=== PATIENT | female | born 1955 | race Caucasian/White ===

== ENCOUNTER 2021-05-02 17:18 | Outpatient (CLI) | payer OTHER, SELFPAY ==
--- NOTE | ~2021-05-02 | MM_ITS ---
EXAMINATION: MM screening [facility] HISTORY: Screening TECHNIQUE: Craniocaudal and mediolateral oblique 3-D tomosynthesis images were obtained and synthetic 2-D images were generated. CAD analysis was submitted and interpreted. COMPARISON: Comparison to multiple prior studies sequentially, with oldest reviewed study dated 12/2015. BREAST PARENCHYMAL COMPOSITION: There are scattered areas of fibroglandular density. FINDINGS: There is no evidence of suspicious mass, calcification, or architectural distortion to sugg est malignancy in either breast. There has been no suspicious interval change. IMPRESSION: 1. No mammographic evidence of malignancy. 2. Recommend routine screening mammography in one year. BI-RADS Category 1: Negative Reviewed, dictated and finalized at location A. ING INSTRUCTOR
== END 2021-05-02 17:19 | disposition home or self-care (01) ==
PROVIDERS: PCP Family Medicine; Visit Provider Obstetrics & Gynecology
DX: Z12.31 Encounter for screening mammogram for malignant neoplasm of breast (principal)
CPT/HCPCS: 77063; 77067

== ENCOUNTER 2021-08-26 13:02 | Outpatient (CLI) | payer OTHER, SELFPAY ==
--- NOTE | ~2021-08-26 | DEXA_ITS ---
Bone Density Report Name: LETICIA VÁSQUEZ Age: 66 Sex: Female Ethnicity: White Date of : 1955 Indication: osteopenia; height loss; hysterectomy; postmenopausal Referring Provider: Jennifer, Dorie Powell Study: Bone densitometry was performed. Exam Date: August 26, 2021 Accession number: [id number] Bone Density: Region BMD T-score Z-score Classification AP Spine (L1-L4) 0.786 -2.4 -0.5 Osteopenia Femoral Neck (Left) 0.590 -2.3 -0.7 Osteopenia Total Hip (Left) 0.638 -2.5 -1.2 Osteoporosis Total Hip Bilateral Avg 0.643 -2.5 -1.2 Osteoporosis Femoral Neck (Right) 0.637 -1.9 -0.3 Osteopenia Total Hip (Right) 0.647 -2.4 -1.1 Osteopenia World Health Organization criteria for BMD impression classify patients as: Normal (T-score at or above -1.0), Osteopenia (T-score between -1.0 and -2.5), or Osteoporosis (T-score at or below -2.5). 10-year Fracture Risk: FRAX not reported because: Some T-score for Spine Total or Hip Total or Femoral Neck at or below -2.5 Previous Exams: Region Exam Age BMD T-score BMD Change BMD Change Date g/cm2 vs Baseline vs Previous AP Spine(L1-L4) 08/26/2021 66 0.786 -2.4 0.006(0.8%)# 0.006(0.8%)# 10/29/2015 60 0.779 -2.4 Total Hip(Left) 08/26/2021 66 0.638 -2.5 -0.042(-6.2%)# -0.042(-6.2%)# 10/29/2015 60 0.680 -2.1 Total Hip(Right) 08/26/2021 66 0.647 -2.4 -0.049(-7.0%)# -0.049(-7.0%)# 10/29/2015 60 0.696 -2.0 *Denotes significance at 95% confidence level, LSC for AP Spine = 0.022 g/cm2, LSC for Total Hip = 0.027 g/cm2 Clinical Information Provided by Patient: Smokes Has used the following medications: Vitamin D, Calcium Has the following medical conditions: Hysterectomy Patient maximum height was 67.5 Menopause Age: 32 Onset of menses at age 10 Number of children 2 Impression: The patient has osteoporosis, based on the Left Total Hip T-score. The patient has risk factors, including: smoking. No significant bone loss was observed. Discussion: INCREASED RISK OF FRACTURE. BONE DENSITY IS UNDESIRABLY LOW AT ONE OR MORE SKELETAL SITES, CONSISTENT WITH POSTMENOPAUSAL OSTEOPOROSIS. This patient's lowest T-score meets the World Health Organization's (WHO) criteria for osteoporosis at one or more sites (T-score -2.5 or below). In untreated patients, the risk of osteoporotic fracture increases approximately two-fold for each 1.0 SD decrease in T-score. Low bone density is not the only risk factor for fracture; also consid
== END 2021-08-26 13:03 | disposition home or self-care (01) ==
LOC: ANHIMG 13:04
PROVIDERS: PCP Family Medicine; Visit Provider Obstetrics & Gynecology
DX: M81.0 Age-related osteoporosis without current pathological fracture (principal); M85.88 Other specified disorders of bone density and structure, other site; M85.852 Other specified disorders of bone density and structure, left thigh; M85.851 Other specified disorders of bone density and structure, right thigh
CPT/HCPCS: 77080

== ENCOUNTER 2023-01-12 14:45 | Outpatient (CLI) | payer MEDICARE, SELFPAY ==
--- NOTE | ~2023-01-12 | MM_ITS ---
EXAMINATION: MM screening [facility] w [facility] HISTORY: Screening mammogram TECHNIQUE: Craniocaudal and mediolateral oblique 3-D tomosynthesis images were obtained and synthetic 2-D images were generated. CAD analysis was submitted and interpreted. COMPARISON: 05/02/2021, 01/08/2017, 08/31/2015 bilateral screening mammogram examinations BREAST PARENCHYMAL COMPOSITION: There are scattered areas of fibroglandular density. FINDINGS: There are scattered bilateral benign calcifications. There is no evidence of suspicious mas s, calcification, or architectural distortion to suggest malignancy in either breast. There has been no suspicious interval change. IMPRESSION: 1. No mammographic evidence of malignancy. 2. Recommend routine screening mammography in one year. BI-RADS Category 2: Benign finding(s). Reviewed, dictated and finalized at location A.
== END 2023-01-12 14:46 | disposition home or self-care (01) ==
LOC: ANHIMG 14:48
PROVIDERS: PCP Family Medicine; Visit Provider Obstetrics & Gynecology Gynecologic Oncology
DX: Z12.31 Encounter for screening mammogram for malignant neoplasm of breast (principal)
CPT/HCPCS: 77063; 77067

== ENCOUNTER 2024-12-12 11:34 | Emergency (ER) | payer MEDICARE, MEDICAID, SELFPAY ==
--- OUTSIDE RECORDS SUMMARY | 2024-12-12 11:36 | XMS_ITS | Data Portability ---
Author Organization [facility] Terrence Nagy Address [address] [facility] [place] [address] Assessment No assessment recorded. Plan of Treatment Reminders Order Date Submit Date Provider Last Modified By Organization Details Last Modified Time Details Appointments None recorded. Lab lipid panel, serum 2019 020 [facility], [address] [place] [address], [address], [place], [address], 0 16:09:27 TSH + free T4, serum 2019 020 [facility], [address] [place] [address], [address], [place], [address], 0 16:10:17 CBC w/ auto diff 2019 020 [facility], [address] [place] [address], [address], [place], [address], 0 16:10:17 CMP, serum or plasma 2019 020 [facility], [address] [place] [address], [address], [place], [address], 0 16:10:16 vitamin D, 25-hydroxy , total, serum 2019 020 [facility], [address] [place] [address], [address], [place], [address], 0 16:10:16 pap, IG + HPV, cervical 2016 017 [facility], [address], [address], [place], [address], 7 19:08:49 vitamin D, 25-hydroxy , total, serum 2016 017 [facility], [address], [address], [place], [address], 7 06:14:37 lipid panel, serum 2016 017 [facility], [address], [address], [place], [address], 7 06:14:36 CMP, serum or plasma 2016 017 [facility], [address], [address], [place], [address], 7 06:14:36 drug screen, urine 2016 017 [facility], [address], [address], [place], [address], 7 19:08:19 Referral colonoscop y referral 2019 020 ATHENAFAX Not available 0 12:31:02 gastroente rologist referral - Please call patient to schedule appt. Thank you 2016 017 [email or web address] Nate Melissa MD, [address] [place], [address], 7 11:34:49 Procedures None recorded. Surgeries None recorded. Imaging MAMMO, screening, bilateral [address] (Imaging), [address] [facility] [address], [place], [address], 0 16:10:22 LDCT, chest, for lung cancer screening [address] (Imaging), [facility], [place], [address], 0 16:10:22 Medication Orders sumatripta n 50 mg tablet [address] [facility] [address] [facility], [address] [place] [address], [address], 0 15:58:24 fluticason e propionate 50 mcg/actuat ion nasal spray,susp ension [email or web address] [place] [address], [address] [place] [address], [address], 0 15:41:50 cetirizine 10 mg tablet [address], [address] [place] [address], [address], 0 15:58:02 atorvastat in 40 mg tablet [address], [address] [place] [address], [address], 0 15:58:07 fluticason e propionate 50 mcg/actuat ion nasal spray,susp ension 2015 016 [facility], [address] [place] [address], [address], 6 13:33:34 cetirizine 10 mg tablet [address], [address] [place] [address], [address], 0 15:58:02 methylpred nisolone 4 mg tablets in a dose pack 2015 [facility], [address] [place] [address], [address], 7 14:18:51 methocarba mol 500 mg tablet 2015 016 [facility], [address] [place] [address], [address], 7 14:19:14 buspirone 10 mg tablet 2015 016 [facility], [address] [place] [address], [address], 7 14:18:57 atorvastat in 40 mg tablet [address] [facility], [address] [place] [address], [address], 0 15:58:07 Patient TargetsNo targets recorded. Patient Instructions Encounter Date Encounter Id Patient Instructions Last Modified By Organization Details Last Modified Time 12/31/2016 [id number] golfer's elbow: care instructions eewig Not available 12/31/2016 14:21:29 golfer's elbow: exercises eewig Not available 12/31/2016 14:21:29 01/28/2017 [id number] Patient to complete fasting labs today eewig Not available 01/28/2017 12:29:09 Reason for Referral Please call patient to [facility] appt. Thank you Referring Physician: Fernanda Ordoñez, Family Medicine, Encounter Date: 12/31/2016 Colonoscopy Referral for Scr eening colonoscopy Referring Physician: Lydia Pack, Concrete [employer] Operator, Encounter Date: 06/07/2019 Results Created Date Observation Date Name Description Value Unit Range Abnormal Flag Note LastModifiedBy Organization Detail LastModifiedTime 06/04/19 17 06/05/2016 drug scree n, urine amphetamines , urine NEGATI VE NG/mL cutoff =1000 AMPHE TAMIN E TEST INCLU SANDI AMPHE TAMIN E AND METHA MPHET AMINE . Not Available [facility] ([facility]) [address] [facility], [place], [address], 06/05/2016 19:08:19 06/04/19 17 06/05/2016 drug scree n, urine barbiturates NEGATI VE NG/mL cutoff =200 Not Available [facility] ([facility]) [address] [place] [address], [address], 06/05/2016 19:08:19 06/04/19 17 06/05/2016 drug scree n, urine benzodiazepi bren NEGATI VE NG/mL cutoff =200 Not Available [facility] ([facility]) [address] [place], [address], 06/05/2016 19:08:19 06/04/19 17 06/05/2016 drug scree n, urine cannabinoid NEGATI VE NG/mL cutoff =50 Not Available [facility] ([facility]) [address] [place], [address], 06/05/2016 19:08:19 06/04/19 17 06/05/2016 drug scree n, urine cocaine (metab.) NEGATI VE NG/mL cutoff =300 Not Available [facility] ([facility]) [address] [place] [address], [address], 06/05/2016 19:08:19 06/04/19 17 06/05/2016 drug scree n, urine methaqualone NEGATI VE NG/mL cutoff =300 Not Available [facility] ([facility]) [address] [place], [address], 06/05/2016 19:08:19 06/04/19 17 06/05/2016 drug scree n, urine opiates NEGATI VE NG/mL cutoff =2000 OPIAT E TEST INCLU SANDI CODEI NE AND MORPH INE ONLY. Not Available [facility] ([facility]) [address] [place], [address], 06/05/2016 19:08:19 06/04/19 17 06/05/2016 drug scree n, urine phencyclidin e NEGATI VE NG/mL cutoff =25 Not Available [facility] ([facility]) [address] [place], [address], 06/05/2016 19:08:19 06/04/19 17 06/05/2016 drug scree n, urine methadone screen, urine NEGATI VE NG/mL cutoff =300 Not Available [facility] ([facility]) [address] [place] [address], [address], 06/05/2016 19:08:19 06/04/19 17 06/05/2016 drug scree n, urine propoxyphene , urine NEGATI VE NG/mL cutoff =300 Not Available [facility] ([facility]) [address] [place], [address], 06/05/2016 19:08:19 01/29/2001/29/2017 CMP, serum or plasm a glucose, serum 93 mg/dL 65-99 Not Available [facility] ([facility]) [address] [place] [address], [address], 01/29/2017 06:14:36 01/29/2001/29/2017 CMP, serum or plasm a BUN 6 mg/dL 8-27 below low normal Not Available [facility] ([facility]) [address] [place], [address], 01/29/2017 06:14:36 01/29/2001/29/2017 CMP, serum or plasm a creatinine, serum 0.56 mg/dL 0.57-1 .00 below low normal Not Available [facility] ([facility]) [address] [place], [address], 01/29/2017 06:14:36 01/29/2001/29/2017 CMP, serum or plasm a eGFR if nonafricn AM 100 mL/mi n/1.7 3 >59 Not Available [facility] ([facility]) [address] [place], [address], 01/29/2017 06:14:36 01/29/2001/29/2017 CMP, serum or plasm a eGFR if africn AM 116 mL/mi n/1.7 3 >59 Not Available [facility] ([facility]) [address] [facility] [place], [address], 01/29/2017 06:14:36 01/29/20 17 01/29/2017 CMP, serum or plasm a BUN/creatini ne ratio 11 12-28 below low normal Not Available [facility] ([facility]) [address] [facility] [place], [address], 01/29/2017 06:14:36 01/29/20 17 01/29/2017 CMP, serum or plasm a sodium, serum 141 mmol/ L 134-14 4 Not Available [facility] ([facility]) [address] [facility] [place], [address], 01/29/2017 06:14:36 01/29/2001/29/2017 CMP, serum or plasm a potassium, serum 4.3 mmol/ L 3.5-5. 2 Not Available [facility] ([facility]) [address] [facility] [place], [address], 01/29/2017 06:14:36 01/29/2001/29/2017 CMP, serum or plasm a chloride, serum 102 mmol/ L 96-106 Not Available [facility] ([facility]) [address] [facility] [place], [address], 01/29/2017 06:14:36 01/29/2001/29/2017 CMP, serum or plasm a carbon dioxide, total 23 mmol/ L 18-29 Not Available [facility] ([facility]) [address] [facility] [place], [address], 01/29/2017 06:14:36 01/29/2001/29/2017 CMP, serum or plasm a calcium, serum 8.9 mg/dL 8.7-10 .3 Not Available [facility] ([facility]) [address] [place], [address], 01/29/2017 06:14:36 01/29/20 17 01/29/2017 CMP, serum or plasm a protein, total, serum 6.5 g/dL 6.0-8. 5 Not Available [facility] ([facility]) [address] [facility] [place], [address], 01/29/2017 06:14:36 01/29/20 17 01/29/2017 CMP, serum or plasm a albumin, serum 4.4 g/dL 3.6-4. 8 Not Available [facility] ([facility]) [address] [facility] [place], [address], 01/29/2017 06:14:36 01/29/2001/29/2017 CMP, serum or plasm a globulin, total 2.1 g/dL 1.5-4. 5 Not Available [facility] ([facility]) [address] [facility] [place], [address], 01/29/2017 06:14:36 01/29/2001/29/2017 CMP, serum or plasm a A/G ratio 2.1 1.2-2. 2 Not Available [facility] ([facility]) [address] [facility] [place], [address], 01/29/2017 06:14:36 01/29/20 17 01/29/2017 CMP, serum or plasm a bilirubin, total 0.3 mg/dL 0.0-1. 2 Not Available [facility] ([facility]) [address] [place], [address], 01/29/2017 06:14:36 01/29/2001/29/2017 CMP, serum or plasm a alkaline phosphatase, S 89 IU/L 39-117 Not Available [facility] ([facility]) [address] [facility] [place], [address], 01/29/2017 06:14:36 01/29/2001/29/2017 CMP, serum or plasm a AST (SGOT) 11 IU/L 0-40 Not Available [facility] ([facility]) [address] [facility], [place], [address], 01/29/2017 06:14:36 01/29/20 17 01/29/2017 CMP, serum or plasm a ALT (SGPT) 13 IU/L 0-32 Not Available [facility] ([facility]) [address] [facility], [place], [address], 01/29/2017 06:14:36 01/29/20 17 01/29/2017 lipid panel , serum cholesterol, total 104 mg/dL 100-19 9 Not Available [facility] ([facility]) [address] [facility], [place], [address], 01/29/2017 06:14:36 01/29/20 17 01/29/2017 lipid panel , serum triglyceride s 89 mg/dL 0-149 Not Available [facility] ([facility]) [address] [facility], [place], [address], 01/29/2017 06:14:36 01/29/20 17 01/29/2017 lipid panel , serum HDL cholesterol 51 mg/dL >39 Not Available [facility] ([facility]) [address] [facility], [place], [address], 01/29/2017 06:14:36 01/29/20 17 01/29/2017 lipid panel , serum VLDL cholesterol madi 18 mg/dL 5-40 Not Available [facility] ([facility]) [address] [facility], [place], [address], 01/29/2017 06:14:36 01/29/2001/29/2017 lipid panel , serum LDL cholesterol calc 35 mg/dL 0-99 Not Available [facility] ([facility]) [address] [facility], [place], [address], 01/29/2017 06:14:36 01/29/20 17 01/29/2017 lipid panel , serum comment: FLUTE GRINDER Not Available [facility] ([facility]) [address] [facility], [place], [address], 01/29/2017 06:14:36 01/29/20 17 01/29/2017 lipid panel , serum T. chol/HDL ratio 2.0 ratio _unit s 0.0-4. 4 T. Chol/ HDL Ratio Men Women 1/2 Avg.R isk 3.4 3.3 Avg.R isk 5.0 4.4 2X Avg.R isk 9.6 7.1 3X Avg.R isk 23.4 11.0 Not Available [facility] ([facility]) [address] [facility], [place], [address], 01/29/2017 06:14:36 01/29/20 17 01/29/2017 vitam in D, 25-hy droxy , total , serum vitamin D, 25-hydroxy 31.4 NG/mL 30.0-1 00.0 Vitam in D defic iency has been defin ed by the Insti tute of Medic ine and an Endoc rine Socie ty pract ice guide line as a level of serum 25-OH vitam in D less than 20 ng/mL (1,2) . The Endoc rine Socie ty went on to furth er defin e vitam in D insuf ficie ncy as a level betwe en 21 and 29 ng/mL (2). 1. IOM (Inst itute of Medic ine). 2009. Lesley ry refer ence tanya es for calci um and D. Ayden burgos [place]: The [facility] Press . 2. Karma emanuel MF, Peter malloy [place], Terra off-F errar i STOCK, et al. Evalu ation , treat ment, and preve ntion of vitam in D defic iency : an Endoc rine Socie ty clini madi pract ice guide line. JCEM. 2010; 96(7) :1911 -30. Not Available [facility] ([facility]) [address] [facility], [place], [address], 01/29/2017 06:14:37 01/29/2001/29/2017 pap, IG + HPV, cervi madi diagnosis: Reid lara NEGAT SIMON FOR INTRA EPITH ELIAL LESIO N AND MALSABRA JAEGER . Not Available [facility] ([facility]) [address] [facility], [place], [address], 01/30/2017 19:08:49 01/29/20 17 01/29/2017 pap, IG + HPV, cervi madi specimen adequacy: Reid lara Satis facto ry for evalu ation . No endoc ervic al cells are prese nt. This is consi stent with a histo ry of hyste recto my. Not Available [facility] ([facility]) [address] [place], [address], 01/30/2017 19:08:49 01/29/20 17 01/29/2017 pap, IG + HPV, cervi madi clinician provided ICD10: Redi lara Z01.4 11 Not Available [facility] ([facility]) [address] [place], [address], 01/30/2017 19:08:49 01/29/20 17 01/29/2017 pap, IG + HPV, cervi madi performed by: Reid Guerrero , Bernard lara (ASCP ) Not Available [facility] ([facility]) [address] [place], [address], 01/30/2017 19:08:49 01/29/20 17 01/29/2017 pap, IG + HPV, cervi madi . . Not Available [facility] ([facility]) [address] [facility], [place], [address], 01/30/2017 19:08:49 01/29/20 17 01/29/2017 pap, IG + HPV, cervi madi note: Reid lara The Pap smear is a scree james test desig lion to aid in the detec tion of kathy ligna nt and malig nant condi tions of the uteri ne cervi x. It is not a diagn ostic proce dure and shoul d not be used as the sole means of detec ting cervi madi cance r. Both false -posi tive and false -nega tive repor ts do occur . Not Available [facility] ([facility]) [address] [facility], [place], [address], 01/30/2017 19:08:49 01/29/20 17 01/29/2017 pap, IG + HPV, cervi madi test methodology: Commen t This liqui d based ThinP rep(R ) pap test was antonette seymour with the use of an image guide armando cruz. Not Available [facility] ([facility]) [address] [facility], [place], [address], 01/30/2017 19:08:49 01/29/20 17 01/30/2017 pap, IG + HPV, cervi madi HPV aptima Positi ve negati ve abnormal This test detec ts fourt een high- risk HPV types (16/1 8/31/ 33/35 /39/4 5/ 51/52 /56/5 8/59/ 66/68 ) witho ut diffe renti ation . Not Available [facility] ([facility]) [address] [facility], [place], [address], 01/30/2017 19:08:49 01/09/20 17 01/08/2017 MAMMO , scree james, bilat eral No observ ation record ed. [email or web address] [place] [id number] (Imaging) [address] [place] [address] [address], [place], [address], 01/09/2017 11:37:24 01/14/20 17 MAMMO , scree james, bilat eral No observ ation record ed. [email or web address] Not Available 12/24 10:43:26 Result Notes None recorded. Problems Name Problem SNOMED Code Status Onset Date Resolution Date Notes Provider Name and Address Organization Details Recorded Time Pain of breast 64405757 Active Leelee Barba MA [facility], [place] - [facility] 6 14:01:22 Migraine 23501388 Active Leelee Barba MA null, [place] - [facility] 6 14:01:22 Menopausal syndrome 212575638 Completed 06/07/2019 DYLAN VERNON Attn: Accounting ,[address] [facility], [place], [place], [address] [place] [address] , [place] - [facility] 0 15:56:09 Hyperlipid emia 83674532 Active Fernanda Ordoñez PA-C Attn: Accounting ,[address] [facility], [place], [place], [address] [place] [address] , [place] - [facility] 6 12:47:55 Fatigue 58750749 Active Leelee Barba [place], [place] - [facility] 6 14:01:22 Vitamin D deficiency 20952230 Active Leelee Barba [place], [place] [facility] 6 14:01:22 Spasm of back muscles 117280061 Active Fernanda Ordoñez PA-C Attn: Accounting ,[address] [facility], [place], [place], [address] [place] [address] , [place] - [facility] 6 11:38:41 Menopause present 279476623 Active Fernanda Ordoñez PA-C Attn: Accounting ,[address] [facility], [place], [place], [address] [place] [address] , [place] - [facility] 6 14:59:14 Skin lesion 56418820 Active Fernanda Ordoñez PA-C Attn: Accounting ,[address] [facility], [place], [place], [address] [place] [address] , [place] - [facility] 6 14:59:27 Osteoporos is 51213129 Active Fernanda Ordoñez PA-C Attn: Accounting ,[address] [facility], [place], [place], [address] [place] [address] , [place] - [facility] 6 12:47:55 Tobacco dependence syndrome 89502809 Active Fernanda Ordoñez PA-C Attn: Accounting ,[address] [facility], [place], [place], [address] [place] [address] , [place] - [facility] 6 12:47:55 Allergic dispositio n 395808107 Active Fernanda Ordoñez PA-C Attn: Accounting ,[address] [facility], [place], [address] , [place] - [facility] 6 12:47:55 Otalgia 08553942 Active Fernanda Ordoñez PA-C Attn: Accounting ,[address] [facility], [place], [address] , [place] [facility] 6 12:47:55 Gastroesop hageal reflux disease 781664520 Active Fernanda Ordoñez PA-C Attn: Accounting ,[address] [facility], [place], [address] , [place] - [facility] 6 12:45:36 HPV - Human papillomav irus test positive Active Leelee Barba [place], [place] [facility] 6 14:01:22 Acute sinusitis 37461439 Completed 06/07/2019 DYLAN VERNON Attn: Accounting ,[address] 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, [place], [address] , [place] [facility] 0 15:49:57 Sciatica 85571550 Active 2015 Fernanda Ordoñez PA-C Attn: Accounting ,[address] [facility], [place], [address] , [place] - [facility] 6 13:36:45 Anxiety 36807586 Completed 201506/07/2019 DYLAN VERNON Attn: Accounting ,[address] [place], [address] , [place] [facility] 0 15:57:31 Medication monitoring Completed 201606/07/2019 DYLAN VERNON Attn: Accounting ,[address] [facility], [place], [place], [address] [place] [address] , [place] - [facility] 0 15:49:49 Medial epicondyli tis 73192947 Active 2016 Fernanda Ordoñez PA-C Attn: Accounting ,[address] [place], [place], [address] [place] [address] , [place] - [facility] 7 15:15:18 Hand wart 260943213 Active 2016 Fernanda Ordoñez PA-C Attn: Accounting ,[address] [place], [place], [address] [place] [address] , [facility] - [facility] 7 15:18:10 Problem Notes None recorded. Procedures Surgical History Date Name Laterality Status Provider Name and Address Organization Details Recorded Time 01/01/20 17 Cryosurgery Warts/Skin Tags completed Fernanda Ordoñez PA-C Attn: Accounting,[address] [place], [place], [address] [place] [address], [place] - [facility] 12/31/2016 15:17:43 05/25/18 81 Total hysterectomy completed Fernanda Ordoñez PA-C Attn: Accounting,[address] [place], [place], [address] [place] [address], [place] - [facility] 01/28/2017 12:26:01 Tubal Ligation completed Aime Li [place] [facility] 06/19/2014 15:24:37 Other completed Primo Li [place] [facility] 06/19/2014 15:24:37 Imaging Results None recorded. Procedure Notes None recorded. Medical Equipment None Reported. Allergies Allergen ID Allergen Name Allergen Category Reaction Reaction Severity Criticality Documentation Date Start Date Code Code System Note Provider Name and Address Organization Details Recorded Time 02544 codeine medicatio n Not available Not available Not available 06/19/2014 2670 RxNorm Karennyth ia Jen ann, [place] - [facility] 5 15:24:37 95977 purified protein derivativ e of tuberculi n medicatio n itching Not available Not available 06/19/2014 8948 RxNorm Karennyth ia Jen null, [place] - [facility] 5 15:24:37 18719 dextromet horphan / guaifenes in medicatio n rash Not available Not available 06/19/2014 16803 8 RxNorm the gener ic brand only Leelee FredaJUSTO seth, [place] - [facility] 6 15:34:33 99819 Vaccine product containin g only influenza virus antigen (medicina l product) medicatio n anaphylax is Not available Not available 08/29/2015 62997 12485 105 SNOMED Leelee BarbaJUSTO seth, [place] - [facility] 6 15:34:33 Medications Name Sig Start Date Stop Date Status Note LastModified by Organization Details LastModified Time cyclobenza ruben 10 mg tablet Take 1 tablet twice a day by oral route as needed. 11/08 completed Not Available Not Available Not Available atorvastat in 40 mg tablet Take 1 tablet every day by oral route in the evening. 06/07 completed not taking Not Available Not Available Not Available methocarba mol 500 mg tablet Take 2 tablets 4 times a day by oral route as needed. 12/31 completed Not Available Not Available Not Available Augmentin 875 mg-125 mg tablet Take 1 tablet twice a day by oral route for 7 days. 10/23 completed Not Available Not Available Not Available neomycin-p olymyxin-h ydrocort 3.5 mg/mL-10,0 00 unit/mL-1 % ear solution INSTILL 4 DROPS INTO AFFECTED EAR(S) BY OTIC ROUTE 3 TIMES PER DAY 05/14 completed Not Available Not Available Not Available prednisone 10 mg tablet Take 2 tablets every day by oral route for 5 days. 10/23 completed Not Available Not Available Not Available paroxetine 10 mg tablet Take 1 tablet every day by oral route. 10/23 completed Not Available Not Available Not Available cetirizine 10 mg tablet Take 1 tablet every day by oral route. 06/07 completed not taking Not Available Not Available Not Available fluconazol e 150 mg tablet Take one tablet PO at start of antibiot ic and at end of antibiot ic treatmen t 10/23 completed Not Available Not Available Not Available sumatripta n 50 mg tablet Take 1 tablet 3 times a day by oral route as needed. 06/07 completed not taking Not Available Not Available Not Available buspirone 10 mg tablet Take 1 tablet twice a day by oral route. 12/31 completed Not Available Not Available Not Available ergocalcif valerie (vitamin D2) 1,250 mcg (50,000 unit) capsule Take 1 capsule every week by oral route. 10/23 completed Not Available Not Available Not Available methylpred nisolone 4 mg tablets in a dose pack Take as prescrib ed on package 12/31 completed Not Available Not Available Not Available fluticason e propionate 50 mcg/actuat ion nasal spray,susp ension Inhale 1 spray every day by intranas al route. active PRN Not Available Not Available No t Available rizatripta n 5 mg tablet Take by oral route for migraine headache . May repeat after 2 hours if headache still present. Do not take more than 3 times weekly. 10/23 completed Not Available Not Available Not Available topiramate 50 mg tablet Take 1 tablet twice a day by oral route. 10/23 completed Not Available Not Available Not Available Vitals Date Recorded Body height Body weight Body mass index (BMI) Heart rate Respiratory rate Body temperature Systolic And Diastolic Provider Name and Address Organization Details Last Updated DateTime 7 168.91 cm 59670.5 3 g 22.2 kg/m2 76 /min 12 /min 97.7 [degF] 140/76 mm[Hg] Efrem Meza [facility] 7 12:37:01 Date Recorded Body height Body mass index (BMI) Body weight Heart rate Body temperature Respiratory rate Oxygen saturation Oxygen saturation in Arterial blood by Pulse oximetry Systolic And Diastolic Provider Name and Address Organization Details Last Updated DateTime 0 168.91 cm 22.5 kg/m2 77564.4 g 74 /min 99.1 [degF] 14 /min 97 % 97 % 130/70 mm[Hg] Indigo Morales MA [facility] 0 15:46:40 Date Recorded Body height Body mass index (BMI) Body weight Heart rate Respiratory rate Body temperature Systolic And Diastolic Provider Name and Address Organization Details Last Updated DateTime 7 168.91 cm 22.5 kg/m2 14809.3 2 g 62 /min 14 /min 98.3 [degF] 138/70 mm[Hg] Efrem Meza [facility] 7 14:08:49 Date Recorded Body height Body mass index (BMI) Body weight Oxygen saturation Oxygen saturation in Arterial blood by Pulse oximetry Heart rate Body temperature Systolic And Diastolic Provider Name and Address Organization Details Last Updated DateTime 7 168.91 cm 22.8 kg/m2 48714.5 1 g 99 % 99 % 74 /min 98.3 [degF] 130/70 mm[Hg] Loan Joshi MA [facility] 7 12:13:36 Date Recorded Body height Body weight Body mass index (BMI) Heart rate Respiratory rate Systolic And Diastolic Systolic And Diastolic Provider Name and Address Organization Details Last Updated DateTime 6 168.91 cm 13486.3 3 g 22.3 kg/m2 88 /min 18 /min 158/82 mm[Hg] 138/78 mm[Hg] Fernanda Ordoñez PA-C Attn: Neel ,[address] [place], [address], [facility] 6 13:42:46 Social History Question Answer Notes LastModified by Organizat ion Details LastModified Time Tobacco Smoking Status Current Every Day Smoker Not Available [facility] 03/27/2020 03:43:22 Are You Blind Or Do You Have Difficulty Seeing? No [id number] Information not available 03/27/2020 What Is Your Level Of Caffeine Consumption? None [id number] Information not available 03/27/2020 How Much Tobacco Do You Chew? None [id number] Information not available 03/27/2020 Are You Deaf Or Do You Have Serious Difficulty Hearing? Yes [id number] Information not available 03/27/2020 What Type Of Diet Are You Following? GLUTENFREE [id number] Information not available 03/27/2020 Which Illicit Or Recreational Drugs Have You Used? None [id number] Information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
--- OUTSIDE RECORDS SUMMARY | 2024-12-12 11:36 | XMS_ITS | Encounter Summary ---
Author Organization [facility] Address [address] [place] [address] Care Team Providers Care Log Haul Chain Feeder Name Role Phone Valerio Montez MD Primary Care Provider [phone] Encounter Details Date Type Department Care Team (Late st Contact Info) Description 11/18/2024 Results Follow-Up [facility] Family & Internal Medicine [facility] [id number] [place] [address] Valerio Montez MD [id number] [place] [address] MRI LUMB SPINE WO CON Social History Tobacco Use Types Packs/Day Years Used Date Smoking Tobacco: Every Day Cigarettes Smokeless Tobacco: Never Comments:pt is not ready to quit - has cut down drastically Alcohol Use Standard Drinks/Week Comments Never 0 (1 standard drink = 0.6 oz pur e alcohol) PHQ-2 Answer Date Recorded Patient Health Questionnaire-2 Score 0 08/18/2024 Comments No Sex and Gender Information Value Date Recorded Sex Assigned at Female 09/27/2024 10:42 AM CDT Legal Sex Female 10:38 AM CDT Gender Identity Female 09/27/2024 10:42 AM CDT Sexual Orientation Not on file documented as of this encounter Progress Notes * Felisha Tee RN - 11/18/2024 4:19 PM CDT Referral placed. * Felisha Tee RN - 11/18/2024 2:48 PM CDT Tried to call pt. No answer and unable to leave message due to no VM set up. Foraminal stenosis is where the spaces in your spine (foramina) through which nerves exit and travel to other parts of your body are narrowed. Is pt ok with seeing neurosurgery at [facility]? There is none that come here to [facility]. This is not the same as neurology. 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 [address] [address] documented as of this encounter Visit Diagnoses Not on filedocumented in this encounter Additional Health Concerns Assessment Noted Time PHQ-9 Depression Total Score: 0 01/27/20 24 3:28 PM CDT documented as of this encounter Care Teams Log Haul Chain Feeder Relationship Specialty [place] [address] [place] [address] PCP - General FAMILY PRACTICE 09/29/22 documented as of this encounter
--- OUTSIDE RECORDS SUMMARY | 2024-12-12 11:36 | XMS_ITS | Encounter Summary ---
Author Organization [facility] Address [address] [place] [address] Care Team Providers Care Investment Accountant Name Role Phone Valerio Montez MD Primary Care Provider [phone] Encounter Details Date Type Department Care Team (Late st Contact Info) Description 11/30/2024 Results Follow-Up [facility] Family & Internal Medicine [address] [address] Valerio Montez MD [address] [place] [id number] [facility] ([facility]) Social History Tobacco Use Types Packs/Day Years [...] Progress Notes * Felisha Tee RN - 11/30/2024 1:57 PM CDT Called pt and informed her of results. She v/u. * Valerio Montez MD - 11/30/2024 10:15 AM CDT No evidence of cervical,lumbosacral radiculopathy incidental mild wrist carpal tunnel and can use splints at bedtime documented in this encounter Plan of Treatment Upcoming Encounters Date Type Department Care Team (Late st Contact Info) Description 05/08/2025 9:15 AM RETAIL ACCOUNT MANAGER [facility] [place] [facility] [address] [place] [address] Lamin Evans MD [address] [address] documented as of this encounter Visit Diagnoses Not on filedocumented in this encounter Additional Health Concerns Assessment Noted Time PHQ-9 Depression Total Score: 0 01/27/20 24 3:28 PM CDT documented as of this encounter Care Teams Investment Accountant Relationship Specialty Start [place] [address] [place] [address] PCP - General FAMILY PRACTICE 09/29/22 documented as of this encounter
--- OUTSIDE RECORDS SUMMARY | 2024-12-12 11:36 | XMS_ITS | Clinical Summary ---
Author Organization [facility] Address [facility] [place] [address] Care Team Providers Care Mining Detail Draftsperson Name Role Phone Antonette Montez MD Primary Care Provider [phone] Allergies Active Allergy Reactions Criticality Noted Date Comments Codeine Hallucinations Medium 01/27/2024 Meloxicam GI Upset 02/17/2022 Tizanidine Shortness of Breath High 02/17/2022 Trazodone Other (see comment) Low 04/02/2021 Constipation Tuberculin, Ppd Itching 08/22/2024 Medications topiramate (TOPAMAX) 25 MG tabletIndication s:Cervicogenic headache,Chronic tension-type headache, not intractable Take 1 tablet (25 mg total) by mouth daily. 90 tablet 3 Active Simethicone 125 MG Cap Take by mouth daily. Active Multiple Vitamins-Mineral s (EYE-VITES) Tab Take 1 tablet by mouth daily. Active docusate sodium (COLACE) 250 MG capsule Take 1 capsule (250 mg total) by mouth daily. Active LACTASE OR Take by mouth daily. Active MAGNESIUM CITRATE OR Take 400 mg by mouth daily. Active MISC NATURAL PRODUCTS OR Take by mouth daily. Vitamin Code Active Biotin 5000 MCG Cap Take by mouth daily. Active Cholecalciferol (VITAMIN D3) 250 MCG (69598 UT) Cap Take by mouth daily. Active MISC NATURAL PRODUCTS OR Take by mouth daily. Anixio Calm Active propranolol (INDERAL) 40 MG tablet TAKE 1 TABLET BY MOUTH TWICE A DAY 180 tablet 3 5 Active fluticasone propionate (FLONASE) 50 MCG/ACT nasal spray Inhale 1 spray every day by intranasal route. Active gabapentin (NEURONTIN) 100 MG capsuleIndicatio ns:Neuropathy Take 1 capsule (100 mg total) by mouth every evening. 90 capsule 3 5 Active predniSONE (DELTASONE) 20 MG tabletIndication s:Radiculopathy, unspecified spinal region Take two tablets once a day for five days 10 tablet 5 Active diazePAM (VALIUM) 5 MG tabletIndication s:Claustrophobia Take 1 tablet by mouth 30 to 60 minutes prior to MRI. May repeat dose right before MRI if needed. 2 tablet 5 Active Hospital, Clinic, or Other Facility Administered Medication Ordered Dose Route Frequency Start Date End Date Status cyclobenzaprine (FLEXERIL) tablet 10 mgIndications:Radicul opathy, unspecified spinal region 10 mg OR 3 times daily PRN 09/27/2024 Acti ve Active Problems Problem Noted Date Diagnosed Date Age-related osteoporosis wit hout current pathological fracture 03/07/2022 Influenza vaccination declined 02/17/2022 Encounters Date Type Department Care Team Description 11/30/2024 Results Follow-Up [facility] Family & Internal Medicine [address] [address] Antonette Montez MD NCVS\EMG (OFallon) 11/29/2024 1:00 PM CDT Office Visit [facility] - [address], [address] [place] [address] Antonette Montez MD Govindarajan, Raghav, MD EMG Testing (BU/LE-Neuropathy) 11/29/2024 Scan HEALTH INFO SRVCS Scanned, Doc [facility] EMG (SCAN) 11/29/2024 Travel 11/18/2024 Orders Only [facility] Family & Internal [address] [address] Antonette Montez MD 11/18/2024 Results Follow-Up [facility] Family & Internal [address] [address] Antonette Montez MD MRI LUMB SPINE WO CON 11/14/2024 3:38 PM CDT - 11/14/2024 11:59 PM CDT Hospital Encounter [facility] [address] [place] [address] Antonette Montez MD Discharge Disposition: Home or Self Care (Routine Discharge) 11/14/2024 Travel 11/07/2024 Telephone [facility] Family & Internal [facility] [id number] [place] [address] Antonette Montez MD Medication Request 09/27/2024 10:40 AM CDT Office Visit [facility] Internal [address] [address] Antonette Montez MD Hip Pain (Pt c/o left hip pain that goes down the whole leg sx started 2 weeks ago) 09/27/2024 Travel from Last 3 Months Immunizations Immunization Administration Dates Next Due Tdap (Generic) 02/07/2016 Family History Medical History Relation Comments Heart Attack Mother Diabetes Paternal Aunt Diabetes Paternal Uncle Relation Status Comments Father Mother Paternal Aunt Paternal Uncle Social History Tobacco Use Types Packs/Day Years Used Date Smoking Tobacco: Every Day Cigarettes Smokeless Tobacco: Never Tobacco Cessation:Ready to Q uit: No; Counseling Given: Yes Comments:pt is not ready to quit - [...] AM CDT Sexual Orientation Not on file Last Filed Vital Signs Vital Sign Reading Time Taken Comments Blood Pressure 153/79 09/27/2024 10:41 AM CDT Pulse 65 09/27/2024 10:41 AM CDT Temperature 36.6 C (97.8 F) 09/27/2024 10:41 AM CDT Respiratory Rate 16 09/27/2024 10:41 AM CDT Oxygen Saturation 100% 09/27/2024 10:41 AM CDT Inhaled Oxygen Concentration - - Weight 57.6 kg (127 lb) 09/27/2024 10:41 AM CDT Height 167.6 cm (5' 6) 09/27/2024 10:41 AM CDT Body Mass Index 20.5 09/27/2024 10:41 AM CDT Plan of Treatment Upcoming Encounters Date Type Department Care Team (Late st Contact Info) Description 05/08/2025 9:15 AM TRAIN BRAKE OPERATOR [facility] [address] [place] [phone] Lamin Evans MD [facility]. [address] [address] Health Maintenance Due Date Last Done Comments Colorectal Cancer Screening Colonoscopy (10 Years) 1955 Hepatitis C 1973 Pneumococcal Vaccine: 50+ Years (1 of 2 - PCV) 1974 Zoster Vaccines (1 of 2) 2005 Annual Medicare Wellness Visit 01/22/2020 Mammogram Screening 05/02/2023 05/02/2021 COVID-19 Vaccine (1 - 2023-2 5 season) 2024 DTaP, Tdap and Td Vaccines ( 2 - Td or Tdap) 02/06/2026 02/07/2016 RSV Immunization or 60+ Years (1 - 1-dose 75+ series) 2030 Dexa Scan (General) Completed 08/26/2021, 08/26/2021, 08/26/2021 PHQ-2 (Physician [place]) Completed 08/18/2024 Meningococcal B Vaccine Aged Out No l onger eligible based on patient's age to complete this topic Meningococcal Vaccine Aged Out No leandro jonas eligible based on patient's age to complete this topic RSV Immunizations Under 20 Months Aged Out No longer eligible b ased on patient's age to complete this topic Procedures Procedure Name Priority Date/Time Associated Diagnosis Comments EMG Routine 11/29/2024 1:00 PM CDT Neuropathy EMG GENERIC (SCAN ORDER) 11/29/2024 MRI LUMB SPINE WO CON Routine 11/14/2024 4:29 PM CDT Radiculopathy, unspecified spinal region BONE DENSITY GENERIC (SCAN ORDER) 08/26/2021 MAMMOGRAM GENERIC (SCAN ORDER) 05/02/2021 from Last 3 Months or Most Recently Relevant to Health Maintenance Results * NCVS\EMG (OFallon) (11/29/2024 1:00 PM CDT) Narrative Indra Nicolas MD - 11/29/2024 1:00 PM CDT Indra Nicolas MD 11/29/2024 10:49 PM .Brief history: Ms. Munoz has noticed numbness and tingling in her hands and feet. She has previous history of head injury, concussions, neck pain and low back pain. Limited Neurological Exam: On exam, strength is 5 out of 5 bilaterally. Reflexes are 3+ and symmetric bilaterally. Margoth's is negative but plantars are downgoing. Electrodiagnostic testing: For sensory nerve conduction studies, the amplitude is measured [id number], the latency reported is the distal peak latency, and the conduction velocity, if measured, is determined from onset latencies and is over the forearm. For motor nerve conduction studies, the amplitude is measured [id number], the latency reported is the distal onset latency, the conduction velocity is calculated over the forearm, and the F wave latency is the minimum latency. Unless otherwise noted, the hand temperature was monitored continuously and remained between 32 C and 36 C during the performance of the NCSs.The study was performed with a concentric needle electrode. Fibrillation and fasciculation activity is graded from none (0) to continuous (4+). The configuration and recruitment pattern of motor unit action potentials under voluntary control, if not normal, are described below. Abbreviations: NCS= nerve conduction study SNAP= sensory nerve action potential CMAP= compound muscle action potential MUP= motor unit potential EMG= electromyogram F IBS= fibrillations PS W's= positive sharp waves Summary of findings: Bilateral median, and ulnar motor NCS was normal bilateral peroneal motor NCS shows small CMAP amplitude due to inadequate stimulation Bilateral tibial motor NCS is normal Bilateral median sensory NCS shows prolonged latency Bilateral ulnar sensory NCS shows normal snap amplitude Bilateral radial sensory NCS shows normal snap amplitude Bilateral sural, superficial. Sensory NCS shows normal snap amplitude Bilateral median orthodromic mixed NCS shows prolonged latency Bilateral ulnar ophthalmic mixed NCS is normal Needle EMG of the left upper and lower limb [5 muscles examined in the upper limb, 5 muscles examined the lower limb] is normal Conclusion: This study shows no electrodiagnostic evidence of a large fiber neuropathy, cervical radiculopathy or a lumbosacral radiculopathy. 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 Nerve conduction and EMG is an extension of history and examination. Clinical correlation is recommended for the electrodiagnostic findings. us Antonette Montez MD NEUROLOGY ORDERABLES Final Result * EMG GENERIC (SCAN ORDER) (11/29/2024) 11/29/2024 us Doc [facility] Scanned SCANNING Final Resu lt * MRI LUMB SPINE WO CON (11/14/2024 4:29 PM CDT) Anatomical Region Laterality Modality Spine Magnetic Resonan ce 11/18/2024 9:56 AM CDT Impressions 11/18/2024 11:25 AM CDT IMPRESSION: Moderate multilevel lumbar spondylosis greatest at L3-4, as described above. Ordered By: ANTONETTE MONTEZ Interpreted By: Tyree Stephen MD, 11/18/2024 9:56 AM Narrative 11/18/2024 11:25 AM CDT [facility] [address] [place] [address] Examination: MRI LUMB SPINE WO CON, 11/14/2024 3:44 PM. Technique: Multiplanar multisequence magnetic resonance images of the lumbar spine were obtained without intravenous contrast. Clinical history: Chronic Low Back Pain, Now With Radiculopathy Down Left Leg All The Way Down To Toes Comparison: None Available Findings: There are 5 nonrib-bearing lumbar-type vertebral bodies. The lumbar vertebral bodies and facets are well aligned. The lumbar vertebral body heights are preserved. There is intervertebral disc height loss at L3-4 with endplate degenerative change at this level. The conus medullaris terminates at L1-2, normal. There is a normal distribution of the cauda equina within the thecal sac. No abnormal prevertebral or paraspinal soft tissue swelling. L1-2: No significant spinal canal stenosis. Facet joint hypertrophy. Mild bilateral neural foraminal stenosis. L2-3: Disc bulge impressing the ventral thecal sac. No significant spinal canal stenosis. Moderate facet hypertrophy. Mild to moderate bilateral neural foraminal stenosis. L3-4: Disc bulge impressing the ventral thecal sac. Moderate spinal canal stenosis. Moderate facet hypertrophy. Mild to moderate left neural foraminal stenosis. Moderate right neural foraminal stenosis. L4-5: Moderate facet hypertrophy. Mild spinal canal stenosis. Moderate to severe right neural foraminal stenosis. Moderate left neural foraminal stenosis. L5-S1: No significant spinal canal stenosis. Moderate left lateral recess narrowing. Moderate facet hypertrophy. Moderate to severe left neural foraminal stenosis. Moderate right neural foraminal stenosis. Procedure Note Tyree Stephen MD - 11/18/2024 [facility] [address] [facility] [place] [address] Examination: MRI LUMB SPINE WO [facility], 11/14/2024 3:44 PM. Technique: Multiplanar multisequence magnetic resonance images of thelumbar spine were obtained without intravenous contrast. Clinical history: Chronic Low Back Pain, Now With Radiculopathy Down LeftLeg All The Way Down To Toes Comparison: None Available Findings: There are 5 nonrib-bearing lumbar-type vertebral bodies. The lumbarvertebral bodies and facets are well aligned. The lumbar vertebral bodyheights are preserved. There is intervertebral disc height loss at L3-4with endplate degenerative change at this level. The conus medullaristerminates at L1-2, normal. There is a normal distribution of the caudaequina within the thecal sac. No abnormal prevertebral or paraspinal softtissue swelling. L1-2: No significant spinal canal stenosis. Facet joint hypertrophy. Mildbilateral neural foraminal stenosis. L2-3: Disc bulge impressing the ventral thecal sac. No significant spinalcanal stenosis. Moderate facet hypertrophy. Mild to moderate bilateralneural foraminal stenosis. L3-4: Disc bulge impressing the ventral thecal sac. Moderate spinal canalstenosis. Moderate facet hypertrophy. Mild to moderate left neuralforaminal stenosis. Moderate right neural foraminal stenosis. L4-5: Moderate facet hypertrophy. Mild spinal canal stenosis. Moderate tosevere right neural foraminal stenosis. Moderate left neural foraminalstenosis. L5-S1: No significant spinal canal stenosis. Moderate left lateral recessnarrowing. Moderate facet hypertrophy. Moderate to severe left neuralforaminal stenosis. Moderate right neural foraminal stenosis. IMPRESSION: Moderate multilevel lumbar spondylosis greatest at L3-4, as describedabove. Ordered By: ANTONETTE MONTEZ Interpreted By: Tyree Stephen MD, 11/18/2024 9:56 AM us Antonette Montez MD MRI Final Resul t * BONE DENSITY GENERIC (08/26/2021) Anatomical Region Laterality Modality Other 08/26/2021 Narrative 08/26/2021 Ordered by an unspecified provider. us Documents Scanned SCANNING Final Result * MAMMOGRAM GENERIC (05/02/2021) Anatomical Region Laterality Modality Other 05/02/2021 Narrative 05/02/2021 Ordered by an unspecified provider. us Documents Scanned SCANNING Final Result from Last 3 Months or Most Recently Relevant to Health Maintenance Insurance [facility] Care Teams Mining Detail Draftsperson Relationship Specialty [place] [address] [place] [address] PCP - General FAMILY PRACTICE 09/29/22
--- OUTSIDE RECORDS SUMMARY | 2024-12-12 11:36 | XMS_ITS | Encounter Summary ---
Author Organization [facility] Address [address] [place] [address] Care Team Providers Care Medical Assistant Secretary Name Role Phone Valerio Montez MD Primary Care Provider [phone] Encounter Details Date Type Department Care Team (Late Contact Info) Description 03/26/2023 Therapy Plan [facility] [address] [place], [place] [phone] [place] [address] [place], [place] [phone] Social History Tobacco Use Types Packs/Day Years Used Date Smoking Tobacco: Every Day Cigarettes Smokeless Tobacco: Never Comments:pt is not ready to quit - has cut down drastically Alcohol Use Standard Drinks/Week Comments Never 0 (1 standard drink = 0.6 oz pur e alcohol) PHQ-2 Answer Date Recorded Patient Health Questionnaire-2 Score 0 12/18/2022 Comments No Sex and Gender Information Value Date Recorded Sex Assigned at Female 09/27/2024 10:42 AM CDT Legal Sex Female 10:38 AM CDT Gender Identity Female 09/27/2024 10:42 AM CDT Sexual Orientation Not on file documented as of this encounter Plan of Treatment Upcoming Encounters Date Type Department Care Team (Late Contact Info) Description 05/08/2025 9:15 AM PERSONAL CARE ASSISTANT [facility] [address] [place] [phone] Lamin Evans MD [facility]. [address] [address] documented as of this encounter Visit Diagnoses Diagnosis Age-related osteoporosis without current pathological fracture- Primary Senile osteoporosis documented in this encounter Additional Health Concerns Assessment Noted Time PHQ-9 Depression Total Score: 2 03/05/20 21 9:28 AM CDT documented as of this encounter Care Teams Medical Assistant Secretary Relationship Specialty Start [place] [address] [place] [address] PCP - General FAMILY PRACTICE 09/29/22 documented as of this encounter
[2024-12-12 12:07] VITALS: BP 166/74; PULSE 52; RESP 18; TEMP 36.7; O2SAT 97
[2024-12-12 12:43] VITALS: BP 159/69; PULSE 48; RESP 16; O2SAT 100
--- NOTE | 2024-12-12 12:48 | ECG_ITS ---
Test Date: 2024-12-12 12:54:31 Measurements Intervals [place] Rate: 49 P: 55 NM: 150 QRS: -40 QRSD: 90 T: 10 QT: 467 QTc: 425 Interpretive Statements SINUS BRADYCARDIA POSSIBLE LEFT ATRIAL ENLARGEMENT [-0.1mV P-WAVE IN V1/V2] LEFT AXIS DEVIATION [QRS AXIS < -30] No previous ECG available for comparison Electronically Signed On 12-12-2024 15:22:43 CDT by Joel Chapin M.D.
--- NOTE | 2024-12-12 13:21 | ED.GENADULT ---
HPI - General Adult General Chief complaint: Recheck/Abnormal Lab/Rx Stated complaint: htn Time Seen by Provider: 12/12/24 12:53 History of Present Illness HPI narrative: 69-year-old female with history of hypertension presenting to emergency department for evaluation for having unusually elevated blood pressure this morning at her [facility] office. Patient states she does take propranolol at 9:00 a.m. and 9:00 p.m.. Patient states she did take her medication at 9:00 a.m. and then had follow-up with [facility] at approximately 11:00 a.m.. At the office they stated she had a systolic blood pressure of 200. Patient denied having any symptoms at that time. Patient denies any associated chest pain shortness of breath patient states she did not have any associated anxiety. Patient was referred to the emergency department patient's initial blood pressure was 166/74 and at time of evaluation patient's blood pressure was 139/71. Patient denies any current symptoms. Related Data Allergies Allergy/AdvReac Type Severity Reaction Status Date / Time codeine Allergy Mild HALLUCINATI Verified 12/12/24 12:12 ONS Review of Systems Review of Systems: All systems reviewed & are unremarkable except as noted in HPI and below Exam Narrative: APPEARANCE: Well appearing, no pain, no distress, well-nourished. HEAD: normocephalic, atraumatic. EYES: PERRLA/EOMI, conjunctivae clear. NOSE: Normal no drainage EARS:TMS clear with good light reflex. THROAT: Pharynx clear, no exudate. NECK: Supple. No adenopathy, no masses. RESPIRATORY: Airway patent, respirations nonlabored. Clear to auscultation bilaterally, no rales, rhonchi, wheezing. CARDIOVASCULAR: Regular rate and rhythm without murmurs rubs or gallops. ABDOMINAL: Soft, nontender, nondistended, normal bowel sounds MUSCULOSKELETAL: Moves all extremities. Strength/ROM intact, No edema, No calf tenderness. NEURO: Alert. Cranial nerves II through XII intact. Good gait. Good coordination SKIN: Warm, dry. Normal Color Course Vital Signs Vital signs: Vital Signs Temperature 98.0 F 12/12/24 12:07 Pulse Rate 52 L 12/12/24 12:07 Respiratory Rate 18 12/12/24 12:07 Blood Pressure 166/74 H 12/12/24 12:07 Pulse Oximetry 97 12/12/24 12:07 Oxygen Delivery Room Air 12/12/24 12:07 Temperature 98.0 F 12/12/24 12:07 Pulse Rate 56 L 12/12/24 14:09 Respiratory Rate 16 12/12/24 14:09 Blood Pressure 154/75 H 12/12/24 14:09 Pulse Oximetry 98 12/12/24 14:09 Oxygen Delivery Room Air 12/12/24 12:43 Medical Decision Making MDM Narrative Medical decision making narrative: 69-year-old female presents to the emergency department for evaluation for high blood pressure. Patient's blood pressure did improve without intervention in the emergency department. At time of evaluation her blood pressure was 139/71. Patient denied having any current chest pain or shortness of breath and states she had none of those symptoms this morning and patient states that she had no complaints. Patient was advised to check her blood pressure once a day at the same time and have close follow-up with primary care physician. Patient was also educated on reasons to return to the emergency department. All questions concerns were addressed. Differential Diagnosis Differential Diagnosis: Symptomatic hypertension, asymptomatic hypertension, hypertensive emergency, hypertensive crisis, medication noncompliance Vital Signs Vital Signs: Vital Signs Temperature 98.0 F 12/12/24 12:07 Pulse Rate 52 L 12/12/24 12:07 Respiratory Rate 18 12/12/24 12:07 Blood Pressure 166/74 H 12/12/24 12:07 Pulse Oximetry 97 12/12/24 12:07 Oxygen Delivery Room Air 12/12/24 12:07 Temperature 98.0 F 12/12/24 12:07 Pulse Rate 56 L 12/12/24 14:09 Respiratory Rate 16 12/12/24 14:09 Blood Pressure 154/75 H 12/12/24 14:09 Pulse Oximetry 98 12/12/24 14:09 Oxygen Delivery Room Air 12/12/24 12:43 ECG Data EKG #1: EKG Interpretation: bradycardia, sinus rhythm, no ectopy, non-specific ST changes, normal QRS, normal QT and NL axis Discharge Plan Discharge Clinical Impression: Asymptomatic hypertension Patient Disposition: Home Condition: Stable Instructions: Antibiotic Form, Hypertension (ED) Additional Instructions: Continue to take your blood pressure medications as directed. Follow a low-sodium diet. Check your blood pressure daily and save with these numbers for your primary care physician. Have close follow-up with your primary care physician to determine if you need any additional blood pressure medications. Patient Language: [place] Islander Follow-up/Referrals: Mel[place],Valerio Munoz MD [Primary Care Provider] -
--- OUTSIDE RECORDS SUMMARY | 2024-12-12 13:30 | XMS_ITS | Continuity of Care Document ---
Author Organization [facility] [employer] Address [address] [place] [address] Assessment Encounter Date Assessment Date Assessment LastModified by Organization Details LastModified Time 12/12/2024 12/12/2024 Patient sent to ER due to hypertensive urgency. Not seen in office. [email or web address] Not available 12/12/2024 13:29:33 Plan of Treatment Reminders Order Date Submit Date Provider Last Modified By Organization Details Last Modified Time Details Appointments None record ed. Lab None record ed. Referral None record ed. Procedures None record ed. Surgeries None record ed. Imaging None record ed. Medication Orders None record ed. Patient TargetsNo targets recorded. Patient InstructionsNo instructions recorded. Reason for Referral None Reported. Medical Equipment None Reported. Medications Name Sig Start Date Stop Date Status Note LastModified by Organization Details LastModified Time prednisone 20 mg tablet TAKE 2 TABLETS BY MOUTH EVERY DAY FOR 5 DAYS active Not Available Not Available No t Available propranolol 40 mg tablet TAKE 1 TABLET BY MOUTH TWICE A DAY active Not Available Not Available No t Available amoxicillin 875 mg tablet TAKE 1 TABLET BY MOUTH 2 TIMES DAILY FOR 7 DAYS. 12/12 completed Not Available Not Available Not Available gabapentin 100 mg capsule TAKE 1 CAPSULE BY MOUTH EVERY EVENING. active Not Available Not Available No t Available diazepam 5 mg tablet TAKE 1 TABLET BY MOUTH 30 TO 60 MINUTES BERORE MRI. MAY REPEAT DOSE RIGHT BEFORE MRI IF NEEDED. active Not Available Not Available No t Available Vitals None Recorded Social History None recorded. Functional Status None recorded. Mental Status None recorded. Family History Nothing Reported. Medical History No medical history recorded. Gynecological HistoryNo gynecological history recorded. Obstetrics History GPAL:G 0 P 0 0 0 0 Past Encounters Encounter ID Performer Location Encounter Start Date Encounter Closed Date Diagnosis/Indication Diagnosis SNOMED-CT Code Diagnosis ICD10 Code Diagnosis Note [id number] TITO LUIS MD [employer] [address] [address] 12/12/2024 11:47:19 12/12/2024 13:29:37 Health Concerns Section Related Observation LastModified by Organization Detai ls LastModified Time None Recorded Concern Status LastModified by Organization Details LastModified Time None Recorded Payers Encounter Date Sequence Insurance Name Policy Number Policy Carey Covered Member ID Carey Member ID Guarantor Name 12/12/2024 1 [facility] (MEDICARE REPLACEMENT/A DVANTAGE - HMO) [id number] Michael Munoz [id number] Michael Munoz OBGyn Episode No OBEpisode recorded.
--- OUTSIDE RECORDS SUMMARY | 2024-12-12 13:30 | XMS_ITS | Encounter Summary ---
Author Organization [facility] Address [address] [place] [address] Care Team Providers Care At Risk Specialist Name Role Phone Valerio Montez MD Primary Care Provider [phone] Encounter Details Date Type Department Care Team (Late st Contact Info) Description 11/30/2024 Results Follow-Up [facility] Family & Internal Medicine [address] [address] Valerio Montez MD [address] [place] [id number] NCVS\EMG ([place]) Social History Tobacco Use Types [...] informed her of results. She v/u. * Vlaerio Montez MD - 11/30/2024 10:15 AM CDT No evidence of cervical,lumbosacral radiculopathy incidental mild wrist carpal tunnel and can use splints at bedtime documented in this encounter Plan of Treatment Upcoming Encounters Date Type Department Care Team (Late st Contact Info) Description 05/08/2025 9:15 AM FINANCIAL CENTER MANAGER [facility] [address] [place] [address] Lamin Evans MD [address] [address] documented as of this encounter Visit Diagnoses Not on filedocumented in this encounter Additional Health Concerns Assessment Noted Time PHQ-9 Depression Total Score: 0 01/27/20 24 3:28 PM CDT documented as of this encounter Care Teams At Risk Specialist Relationship Specialty [place] [address] [place] [address] PCP - General FAMILY PRACTICE 09/29/22 documented as of this encounter
--- OUTSIDE RECORDS SUMMARY | 2024-12-12 13:30 | XMS_ITS | Data Portability ---
[facility] Organization [facility] Address [address] [place] [address] Assessment Encounter Date Assessment Date Assessment LastModified by Organization Details LastModified Time 12/12/2024 12/12/2024 Patient sent to ER due to hypertensive urgency. Not seen in office. [email or web address] Not available 12/12/2024 13:29:33 Plan of Treatment [...] SNOMED-CT Code Diagnosis ICD10 Code Diagnosis Note [id number] TITO LUIS MD [place] [address] [address] 12/12/2024 11:47:19 12/12/2024 13:29:37 Health Concerns Section Related Observation LastModified by Organization Detai ls LastModified Time None Recorded Concern Status LastModified by Organization Details LastModified Time None Recorded Advance Directives Directive None Recorded Payers Insurance Date Sequence Insurance Name Policy Number Policy Carey Covered Member ID Carey Member ID Guarantor Name 12/09/2024 1 [facility] (MEDICARE REPLACEMENT/A DVANTAGE - HMO) [id number] Michael Munoz [id number] Michael Munoz OBGyn Episode No OBEpisode recorded.
--- OUTSIDE RECORDS SUMMARY | 2024-12-12 13:30 | XMS_ITS | Clinical Summary ---
Author Organization [facility] Address [facility] [place] [address] Care Team Providers Care Dehairing Machine Tender Name Role Phone Antonette Montez MD Primary Care Provider [phone] Allergies Active Allergy Reactions Criticality Noted Date [...] daily. Active Cholecalciferol (VITAMIN D3) 250 MCG (00106 UT) Cap Take by mouth daily. Active [...] [facility] Family & Internal Medicine [address] [address] Antonette Montez MD NCVS\EMG ([place]) 11/29/2024 1:00 PM CDT Office Visit [facility] - [address], [address] [place] [address] Antonette Montez MD Govindarajan, Raghav, MD EMG Testing (BU/LE-Neuropathy) 11/29/2024 Scan HEALTH INFO SRVCS Scanned, Doc [facility] EMG (SCAN) 11/29/2024 Travel 11/18/2024 Orders Only [facility] Family & Internal [address] [address] Anotnette Montez MD 11/18/2024 Results Follow-Up [facility] Family & Internal [address] [address] Antonette Montez MD MRI LUMB SPINE WO CON 11/14/2024 3:38 PM CDT - 11/14/2024 11:59 PM CDT Hospital Encounter [facility] [address] [place] [address] Antonette Montez MD Discharge Disposition: Home or Self Care (Routine Discharge) 11/14/2024 Travel 11/07/2024 Telephone [facility] Family & Internal [facility] [address] [place] [address] Antonette Montez MD Medication Request 09/27/2024 10:40 AM CDT Office Visit [facility] Internal [address] [address] Antonette Montez MD Hip Pain [...] st Contact Info) Description 05/08/2025 9:15 AM PRESCHOOL PARAPROFESSIONAL [facility] [address] [place] [address] Lamin Evans MD [facility]. [address] [address] Health Maintenance Due Date Last Done Comments [...] (General) Completed 08/26/2021, 08/26/2021, 08/26/2021 PHQ-2 (Physician [place]) Completed 08/18/2024 Meningococcal B Vaccine Aged Out [...] nerve conduction studies, the amplitude is measured [id number], the latency reported is the distal peak latency, and the conduction velocity, if measured, is determined from onset latencies and is over the forearm. For motor nerve conduction studies, the amplitude is measured [id number], the latency reported is the distal onset [...] 9:56 AM Narrative 11/18/2024 11:25 AM CDT [facility] [address] [place] [address] Examination: MRI LUMB SPINE WO CON, 11/14/2024 [...] Procedure Note Tyree Stephen MD - 11/18/2024 [facility] [address] [facility] [place] [address] Examination: MRI LUMB SPINE WO [facility], 11/14/2024 3:44 PM. Technique: Multiplanar multisequence [...] Most Recently Relevant to Health Maintenance Insurance [facility] Care Teams Dehairing Machine Tender Relationship Specialty [place] [address] [place] [address] PCP - General FAMILY PRACTICE 09/29/22
--- OUTSIDE RECORDS SUMMARY | 2024-12-12 13:30 | XMS_ITS | Encounter Summary ---
Author Organization [facility] Address [address] [place] [address] Care Team Providers Care Traveling Repair Accountant Name Role Phone Valerio Montez MD Primary Care Provider [phone] Encounter Details Date Type Department Care Team (Late Contact Info) Description 03/26/2023 Therapy Plan [facility] [address] [place], [place] [phone] [place] [address] [place], [place] [id number] Social History Tobacco Use Types Packs/Day Years [...] (Late Contact Info) Description 05/08/2025 9:15 AM CELERY TIER [facility] [address] [place] [phone] Lamin Evans MD [facility]. [address] [address] documented as of this encounter Visit Diagnoses Diagnosis Age-related osteoporosis without current pathological fracture- Primary Senile osteoporosis documented in this encounter Additional Health Concerns Assessment Noted Time PHQ-9 Depression Total Score: 2 03/05/20 21 9:28 AM CDT documented as of this encounter Care Teams Traveling Repair Accountant Relationship Specialty [place] [address] [place] [address] PCP - General FAMILY PRACTICE 09/29/22 documented as of this encounter
--- OUTSIDE RECORDS SUMMARY | 2024-12-12 13:30 | XMS_ITS | Encounter Summary ---
Author Organization [facility] Address [address] [place] [address] Care Team Providers Care Overcaster Name Role Phone Valerio Montez MD Primary Care Provider [phone] Encounter Details Date Type Department Care Team (Late st Contact Info) Description 11/18/2024 Results Follow-Up [facility] Family & [facility] [address] [place] [address] [place]io Montez [place] [id number] [place] [address] MRI LUMB SPINE WO CON Social [...] Is pt ok with seeing neurosurgery at [facility]? There is none that come here to [place]. This is not the same as neurology. 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 [address] [address] documented as of this encounter Visit Diagnoses Not on filedocumented in this encounter Additional Health Concerns Assessment Noted Time PHQ-9 Depression Total Score: 0 01/27/20 24 3:28 PM CDT documented as of this encounter Care Teams Overcaster Relationship Specialty [place] [address] [place] [address] PCP - General FAMILY PRACTICE 09/29/22 documented as of this encounter
[2024-12-12 14:09] VITALS: BP 154/75; PULSE 56; RESP 16; O2SAT 98
== END 2024-12-12 14:10 | disposition home or self-care (01) ==
LOC: ANHED 13:26
PROVIDERS: Emergency Provider Emergency Medicine; PCP Family Medicine
DX: I10 Essential (primary) hypertension (principal); R00.1 Bradycardia, unspecified
CPT/HCPCS: 93005; 99283